=== PATIENT | male | born 1985 | race Caucasian/White ===

== ENCOUNTER 2020-07-02 03:17 | Emergency (ER) | payer OTHER, MEDICAID, SELFPAY ==
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
[2020-07-02 03:18] VITALS: BP 146/80; PULSE 83; RESP 14; TEMP 37; O2SAT 98
[2020-07-02] MEDS: MORPHINE SULFATE (*CRX) 4 MG/ML INJ IV PUSH (03:43)
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
[2020-07-02 05:36] VITALS: BP 112/66; PULSE 61; RESP 16; O2SAT 100
[2020-07-02] MEDS: HYDROcodone/acetaminophen (*CRX) 5-325 MG TABLET 1 TAB PO (05:43)
[2020-07-02] MEDS: KETOROLAC 30 MG/ML VIAL (*BKC) IV PUSH (05:43)
== END 2020-07-02 05:52 | disposition home or self-care (01) ==
PROVIDERS: Emergency Provider Emergency Medicine
DX: S06.0X0A Concussion without loss of consciousness, initial encounter (principal); S16.1XXA Strain of muscle, fascia and tendon at neck level, initial encounter; S29.012A Strain of muscle and tendon of back wall of thorax, initial encounter; F17.200 Nicotine dependence, unspecified, uncomplicated; W22.8XXA Striking against or struck by other objects, initial encounter
CPT/HCPCS: 70450; 72125; 72128; 96374; 96375; 99284; A9270; J1885; J2270

== ENCOUNTER 2021-02-02 10:14 | Outpatient (CLI) | payer OTHER, SELFPAY ==
--- NOTE | 2021-02-02 11:00 | NEURO_ITS ---
Impression: # Complains of neuropathy in upper extremities. # No Carpal Tunnel Syndrome or ulnar neuropathy. # Normal and symmetrical F-waves. # Normal needle/EMG exam. # Clinical correlation recommended. Nerve Conduction Studies Anti Sensory Summary Table Stim Site NR Peak (ms) P-T Amp (?V) Site1 Site2 Delta-P (ms) Dist (cm) Glenn (m/s) Left Median Anti Sensory (2-3nd Digit) Wrist 2.3 73.6 Wrist 2-3nd Digit 2.3 14.0 61 Wrist 2.3 89.0 Wrist 2-3nd Digit 2.3 14.0 61 Right Median Anti Sensory (2-3nd Digit) Wrist 2.4 52.1 Wrist 2-3nd Digit 2.4 14.0 58 Wrist 2.5 77.0 Wrist 2-3nd Digit 2.4 14.0 58 Left Radial Anti Sensory (Base 1st Digit) Wrist 1.8 29.4 Wrist Base 1st Digit 1.8 0.0 Right Radial Anti Sensory (Base 1st Digit) Wrist 1.9 17.6 Wrist Base 1st Digit 1.9 0.0 Left Ulnar Anti Sensory (5th Digit) Wrist 2.1 60.0 Wrist 5th Digit 2.1 14.0 67 Right Ulnar Anti Sensory (5th Digit) Wrist 2.0 82.7 Wrist 5th Digit 2.0 14.0 70 Motor Summary Table Stim Site NR Onset (ms) O-P Amp (mV) Site1 Site2 Delta-0 (ms) Dist (cm) Glenn (m/s) Left Median Motor (Abd Poll Brev) Wrist 2.8 5.2 Elbow Wrist 4.3 26.0 60 Elbow 7.1 8.0 Right Median Motor (Abd Poll Brev) Wrist 2.5 6.4 Elbow Wrist 4.4 26.0 59 Elbow 6.9 4.1 Left Ulnar Motor (Abd Dig Minimi) Wrist 2.1 8.2 A Elbow Wrist 4.9 29.0 59 A Elbow 7.0 7.2 Right Ulnar Motor (Abd Dig Minimi) Wrist 2.0 6.3 A Elbow Wrist 4.6 27.0 59 A Elbow 6.6 5.7 F Wave Studies NR F-Lat (ms) L-R F-Lat (ms) Left Median (Mrkrs) (Abd Poll Brev) 26.87 0.66 Right Median (Mrkrs) (Abd Poll Brev) 27.53 0.66 Left Ulnar (Mrkrs) (Abd Dig Min) 26.55 0.17 Right Ulnar (Mrkrs) (Abd Dig Min) 26.72 0.17 EMG Side Muscle Nerve Root Ins Act Fibs Amp Dur Recrt Comment Right 1stDorInt Ulnar C8-T1 Nml Nml Nml Nml Nml Right Ext Indicis Radial (Post Int) C7-8 Nml Nml Nml Nml Nml Right Ext Digitorum Radial (Post Int) C7-8 Nml Nml Nml Nml Nml Right BrachioRad Radial C5-6 Nml Nml Nml Nml Nml Right PronatorTeres Median C6-7 Nml Nml Nml Nml Nml Right Abd Poll Brev Median C8-T1 Nml Nml Nml Nml Nml Left 1stDorInt Ulnar C8-T1 Nml Nml Nml Nml Nml Left Ext Indicis Radial (Post Int) C7-8 Nml Nml Nml Nml Nml Left Ext Digitorum Radial (Post Int) C7-8 Nml Nml Nml Nml Nml Left BrachioRad Radial C5-6 Nml Nml Nml Nml Nml Left PronatorTeres Median C6-7 Nml Nml Nml Nml Nml Left Abd Poll Brev Median C8-T1 Nml Nml Nml Nml Nml MTDD
== END 2021-02-02 10:15 | disposition home or self-care (01) ==
PROVIDERS: PCP Physician Assistant; Visit Provider Physician Assistant
DX: M54.12 Radiculopathy, cervical region (principal)
CPT/HCPCS: 95886; 95911

== ENCOUNTER 2021-09-27 22:59 | Emergency (ER) | payer OTHER, SELFPAY ==
[2021-09-27 23:32] VITALS: BP 124/70; PULSE 116; RESP 20; TEMP 37.1; O2SAT 96
== END 2021-09-28 03:31 | disposition left against medical advice (07) ==
PROVIDERS: PCP Physician Assistant
DX: Z53.21 Procedure and treatment not carried out due to patient leaving prior to being seen by health care provider (principal)
CPT/HCPCS: 99199

== ENCOUNTER 2022-04-06 15:52 | Outpatient (CLI) | payer OTHER, SELFPAY ==
--- NOTE | ~2022-04-06 | XR_ITS ---
EXAMINATION: XR chest 2V 04/06/2022 16:12 INDICATION: Cough. Sternal chest pain. PROCEDURE: 2 view chest COMPARISON: Comparison to multiple prior studies sequentially, with oldest reviewed study dated 06/21. FINDINGS: The lungs are clear. The cardiomediastinal silhouette is within normal limits. There are no pleural effusions. There is no pneumothorax suspected. IMPRESSION: 1: NO ACUTE CARDIOPULMONARY DISEASE. Reviewed, dictated and finalized at location A.
== END 2022-04-06 15:53 | disposition home or self-care (01) ==
PROVIDERS: PCP Physician Assistant; Visit Provider Physician Assistant
DX: R05.9 Cough, unspecified (principal)
CPT/HCPCS: 71046

== ENCOUNTER 2023-06-10 13:22 | Emergency (ER) | payer OTHER, SELFPAY ==
[2023-06-10 13:30] VITALS: BP 146/77; PULSE 92; RESP 16; TEMP 37.1; O2SAT 99
--- NOTE | 2023-06-10 14:14 | ED.SKABFB ---
HPI - Skin/Abscess/Foreign Bdy General Chief complaint: Wound/Laceration Stated complaint: Left Side of Face Bee Sting Time Seen by Provider: 06/10/23 14:04 Source: patient, family (Significant other) and RN notes reviewed Mode of arrival: ambulatory Limitations: no limitations History of Present Illness HPI narrative: Patient presents today complaining that he got stung by a bee to the left hoahaoism around 930 this morning. States his face immediately started swelling. States this has happened to him when he has gotten stung by bees several times in the past. Denies shortness of breath, difficulty swallowing, scratchiness in the throat. Around 945 this morning he took 2 Children's Benadryl. 1 hour prior to arrival he took 50 mg of adult Benadryl. States symptoms have not improved. He also reports pain associated with the swelling in his face. Related Data Home Medications Medication Instructions Recorded Confirmed paroxetine HCl 10 mg tablet mg PO 06/10/23 quetiapine 50 mg tablet mg 06/10/23 Allergies Allergy/AdvReac Type Severity Reaction Status Date / Time Penicillins Allergy Unknown Unknown Verified 06/10/23 13:30 venom-honey bee Allergy Unknown Unknown Verified 06/10/23 13:30 Review of Systems Review of Systems: CONSTITUTIONAL: Denies body aches, fever, chills, or sweats. EYES: Denies visual changes, redness, or discharge. ENT: Denies rhinorrhea, congestion, sore throat, or otalgia. CARDIOVASCULAR: Denies chest pain, palpitations, or edema. RESPIRATORY: Denies cough or dyspnea. GASTROINTESTINAL: Denies abdominal pain, nausea, vomiting, or diarrhea. GENITOURINARY: Denies dysuria or hematuria. SKIN: + bee sting and facial swelling MUSCULOSKELETAL: Denies back pain, joint pain, or myalgia. NEUROLOGIC: Denies headache, numbness, tingling, or weakness. PSYCH: Denies depression or anxiety. [facility] Past Medical History Medical History Healthy adult male Surgical History Surgical History No history of previous surgery Family History Family History Father Patient's father is in good health Family history of heart disease in male family member before age 55 Grandparent Cerebrovascular accident Mother Family history of diabetes mellitus in first degree relative Other Carcinoma of colon Social History Social History Smoking status: Heavy tobacco smoker Alcohol intake: current Gender identity (if verbalized by the patient): Male Comments At time of signature, I have reviewed and agree with nursing past medical, surgical, social and family history unless otherwise noted. Please see nursing chart for further information. There is no relevant family history pertinent to the presenting complaint Exam Narrative: GENERAL: Well-appearing, well-nourished, and in no acute distress. HEAD: Normocephalic, atraumatic. EYES: EOMI. PERRL. Mild to moderate swelling of the left upper and lower eyelids. No redness or drainage. Conjunctivae normal. Small puncture wound to the left hoahaoism without surrounding edema. ENT: Mucous membranes pink and moist. Nares clear. No rhinorrhea. Throat normal. Uvula midline. No swelling to the lips or tongue. NECK: Normal AROM. CHEST: No respiratory distress. Clear to auscultation. HEART: Regular rate and rhythm. No murmur appreciated. Normal peripheral pulses. EXTREMITIES: Normal range of motion. No edema. SKIN: Warm, dry, no rash. Capillary refill normal. Normal skin turgor. NEURO: No focal deficits. Alert and oriented x3. Gait steady. PSYCH: Normal affect. No signs of depression or anxiety. Course Course Level of Care: Express Care Visit Vital Signs Vital signs: Vital Signs Temperature 98.8 F
[2023-06-10] MEDS: KETOROLAC 30 MG/ML VIAL (*BKC) IM (14:27)
== END 2023-06-10 14:54 | disposition home or self-care (01) ==
PROVIDERS: Emergency Provider Nurse Practitioner; PCP Physician Assistant
DX: T63.481A Toxic effect of venom of other arthropod, accidental (unintentional), initial encounter (principal); F17.200 Nicotine dependence, unspecified, uncomplicated
CPT/HCPCS: 96372; 99214; G0463; J1100; J1885

== ENCOUNTER 2023-07-25 12:15 | Outpatient (CLI) | payer OTHER, SELFPAY ==
--- NOTE | ~2023-07-25 | XR_ITS ---
EXAMINATION: XR chest 2V 07/25/2023 12:38 INDICATION: Chest pain PROCEDURE: 2 view chest COMPARISON: Comparison to multiple prior studies sequentially, with oldest reviewed study dated 10/12. FINDINGS: The lungs are clear. The cardiomediastinal silhouette is within normal limits. There are no pleural effusions. There is no pneumothorax suspected. IMPRESSION: 1: NO ACUTE CARDIOPULMONARY DISEASE. Reviewed, dictated and finalized at location B.
--- NOTE | ~2023-07-25 | XR_ITS ---
EXAM: XR thoracic spine 3V DATE: 07/25/2023 12:38 HISTORY: MID TO LOWER THORACIC BACK PAIN, INSPIRATORY CRACKLES . COMPARISON: CT T-spine 07/02/2020. FINDINGS: Vertebral body alignment intact. Vertebral body heights preserved. No disc space narrowing . No traumatic malalignment or fracture. Visualized lung parenchyma is clear. IMPRESSION: Normal thoracic spine radiograph findings. Reviewed, dictated and finalized at location K.
== END 2023-07-25 12:16 | disposition home or self-care (01) ==
LOC: ANHIMG 12:21
PROVIDERS: PCP Physician Assistant; Visit Provider Physician Assistant
DX: M54.6 Pain in thoracic spine (principal); R09.89 Other specified symptoms and signs involving the circulatory and respiratory systems
CPT/HCPCS: 71046; 72072